=== PATIENT | male | born 1965 | race Hispanic/Latino ===

== ENCOUNTER 2019-03-24 19:23 | Emergency (ER) | payer SELFPAY | END 2019-03-24 19:57 | disposition home or self-care (01) | LOC: EDH 19:23 | DX: S91.331A Puncture wound without foreign body, right foot, initial encounter (principal); E11.9 Type 2 diabetes mellitus without complications; W45.0XXA Nail entering through skin, initial encounter; Y93.89 Activity, other specified; Y92.89 Other specified places as the place of occurrence of the external cause; Y99.8 Other external cause status | CPT/HCPCS: 73620 ==

== ENCOUNTER 2020-08-24 18:03 | Inpatient (IN) | payer OTHER, SELFPAY ==
[~2020-08-24] VITALS: Ht 177.8 cm; Wt 74.8 kg
[2020-08-24 19:01] LABS: BASOPHILS % (AUTO) 0.2 % (0.0-5.0); EOSINOPHILS % (AUTO) 2.3 % (0.0-8.0); HEMATOCRIT 34.4 % (42-54); LYMPHOCYTES % (AUTO) 7.5 % (21.0-51.0); MEAN CORPUSCULAR HEMOGLOBIN 31.3 pg (27.0-33.0); MEAN CORPUSCULAR HGB CONC 35.2 g/dL (32.0-36.0); MEAN CORPUSCULAR VOLUME 88.9 fL (79-99); MONOCYTES % (AUTO) 7.3 % (3.0-13.0); NEUTROPHILS % (AUTO) 82.3 % (40.0-77.0); PLATELET COUNT (AUTO) 187 K/uL (130-400); RED BLOOD CELL COUNT(AUTO) 3.87 MIL/uL (4.50-6.20); RED CELL DISTRIBUTION WIDTH 11.9 % (11.0-15.5); WHITE BLOOD COUNT (AUTO) 10.2 K/uL (4.8-10.8)
[2020-08-24 19:13] LABS: CREATININE 1.6 mg/dL (0.5-1.5); POTASSIUM 4.5 mmol/L (3.5-5.1)
[2020-08-24 19:18] LABS: ALBUMIN 3.1 g/dL (3.5-5.0); BILIRUBIN,TOTAL 1.9 mg/dL (0.2-1.0); TOTAL PROTEIN, SERUM 7.6 g/dL (6.0-8.3)
[2020-08-24] MEDS ORDERED: 0.9% SODIUM CHLORIDE 50 ML IV BAG IV ONE (21:45)
[2020-08-24] MEDS ORDERED: PIP/TAZ ZOSYN 3.375G 3.375 GM VIAL IVPB ONE (21:45)
[2020-08-24] MEDS ORDERED: SODIUM CHLORIDE 0.9% 1000ML 1,000 ML IV ONE (21:45)
[2020-08-24] MEDS ORDERED: INSULIN HUMULIN R 100 UNIT/ML 3ML IV SCH (21:45)
[2020-08-24] MEDS ORDERED: 0.9% SODIUM CHLORIDE 250 ML IV BAG IVPB ONE (21:45)
[2020-08-24] MEDS ORDERED: VANCOMYCIN 1G VIAL IVPB ONE (21:45)
[2020-08-24 22:24] LABS: APPEARANCE,URINE Clear (CLEAR); BILIRUBIN,URINE Negative (NEGATIVE); COLOR,URINE Yellow (YELLOW); GLUCOSE, URINE (UA) >=1000 mg/dL (NEGATIVE); KETONES,URINE Negative (NEGATIVE); LEUKOCYTE ESTERASE ,URINE Negative (NEGATIVE); NITRATE,URINE Negative (NEGATIVE); OCCULT BLOOD,URINE Small (NEGATIVE); PROTEIN,URINE >=1000 mg/dL (NEGATIVE)
[2020-08-24 22:53] LABS: BACTERIA,URINE Few /HPF (None Seen); SQUAMOUS EPITHELIAL CELL,UR 0-2 /HPF (0-2); WBC,URINE 0-1 /HPF (0-1)
[2020-08-24] MEDS ORDERED: ZOSYN 3.375GM+NS 50ML 50 ML IV ONE (23:00)
[2020-08-24] MEDS ORDERED: SODIUM CHLORIDE 0.9% 50 ML IV ONE (23:00)
[2020-08-24] MEDS ORDERED: ACETAMINOPHEN 325 MG TAB PO PRN ×2 (23:45)
[2020-08-24] MEDS ORDERED: VANCOMYCIN PROTOCOL PER PHARMACY IV PRN (23:45)
[2020-08-24] MEDS ORDERED: MORPHINE 2 MG SYG (2MG/1ML) IV PRN (23:45)
[2020-08-24] MEDS ORDERED: SODIUM CHLORIDE 0.9% 1000ML 1,000 ML IV SCH (23:45)
[2020-08-24] MEDS ORDERED: ONDANSETRON HCL 4 MG/2 ML VIAL IV PRN (23:45)
[2020-08-25 00:30] VITALS: BP 175/79
[2020-08-25] MEDS ORDERED: VANCOMYCIN KIT 250 ML IV ONE (00:34)
[2020-08-25 01:37] LABS: INR 0.99 (0.85-1.15); PROTHROMBIN TIME 10.8 SEC (9.6-11.6)
[2020-08-25 01:38] LABS: PARTIAL THROMBOPLASTIN TIME 25.6 SEC (26.3-35.5)
[2020-08-25 02:41] VITALS: BP 153/67
[2020-08-25 02:43] LABS: CRP QUANTITATIVE 211.3 mg/L (0.00-9.0); POTASSIUM 4.8 mmol/L (3.5-5.1)
[2020-08-25 02:45] LABS: BILIRUBIN,TOTAL 1.8 mg/dL (0.2-1.0); CREATININE 1.7 mg/dL (0.5-1.5)
[2020-08-25 02:46] LABS: ALBUMIN 2.9 g/dL (3.5-5.0); TOTAL PROTEIN, SERUM 7.3 g/dL (6.0-8.3)
[2020-08-25 04:44] VITALS: BP 152/63
[2020-08-25] MEDS ORDERED: ZOSYN 3.375GM+NS 50ML 50 ML IV SCH (05:00)
[2020-08-25 06:07] VITALS: BP 148/61
[2020-08-25 06:27] LABS: BASOPHILS % (AUTO) 0.2 % (0.0-5.0); EOSINOPHILS % (AUTO) 0.2 % (0.0-8.0); HEMATOCRIT 30.2 % (42-54); LYMPHOCYTES % (AUTO) 9.2 % (21.0-51.0); MEAN CORPUSCULAR HEMOGLOBIN 31.4 pg (27.0-33.0); MEAN CORPUSCULAR HGB CONC 35.1 g/dL (32.0-36.0); MEAN CORPUSCULAR VOLUME 89.3 fL (79-99); MONOCYTES % (AUTO) 9.3 % (3.0-13.0); NEUTROPHILS % (AUTO) 80.4 % (40.0-77.0); PLATELET COUNT (AUTO) 156 K/uL (130-400); RED BLOOD CELL COUNT(AUTO) 3.38 MIL/uL (4.50-6.20); RED CELL DISTRIBUTION WIDTH 11.9 % (11.0-15.5); WHITE BLOOD COUNT (AUTO) 9.2 K/uL (4.8-10.8)
[2020-08-25] MEDS ORDERED: COMPOUND IV REFRIGERATED 1 EACH IVSOLN MISC PRN (06:30)
[2020-08-25 06:49] LABS: HEMOGLOBIN A1C 10.5 % (4.0-6.0)
[2020-08-25] MEDS ORDERED: INSULIN HUMULIN R 100 UNIT/ML 3ML SQ SCH (07:30)
[2020-08-25] MEDS ORDERED: FAMOTIDINE 20MG TAB 20 MG TAB PO SCH (09:00)
[2020-08-25] MEDS ORDERED: FAMOTIDINE/PF 20 MG/2 ML VIAL IV SCH (09:00)
[2020-08-25] MEDS ORDERED: VANCOMYCIN IV SCH (09:00)
[2020-08-25] MEDS ORDERED: SODIUM CHLORIDE 0.9% IV SCH (09:00)
== END 2020-08-25 10:10 | disposition left against medical advice (07) | DRG 299 ==
LOC: EDH 18:03 → EDHIP 18:04
PROVIDERS: ADMIT Internal Medicine; ATTEND Internal Medicine
DX: E11.52 Type 2 diabetes mellitus with diabetic peripheral angiopathy with gangrene (principal); A48.0 Gas gangrene; L03.116 Cellulitis of left lower limb; Z53.29 Procedure and treatment not carried out because of patient's decision for other reasons; E11.65 Type 2 diabetes mellitus with hyperglycemia; Z87.891 Personal history of nicotine dependence; Z91.19 Patient's noncompliance with other medical treatment and regimen; Z79.84 Long term (current) use of oral hypoglycemic drugs
CPT/HCPCS: 36415; 73630; 73700; 80053; 81001; 82010; 82948; 83036; 83605; 84145; 85025; 85610; 85651; 85730; 86140; 87040; 93005; G0378; J1815; J2543; J3370; J7050

== ENCOUNTER 2020-08-27 14:01 | Inpatient (IN) | payer OTHER ==
[2020-08-27] VITALS (14 sets, daily range): BP systolic 126–164; BP diastolic 58–88
[~2020-08-27] VITALS: Ht 177.8 cm; Wt 74.8 kg
[2020-08-27] MEDS ORDERED: VANCOMYCIN 1G VIAL IVPB ONE (14:45)
[2020-08-27] MEDS ORDERED: 0.9% NACL 50ML 50 ML IV.SOLN. IV ONE (14:45)
[2020-08-27] MEDS ORDERED: PIP/TAZ ZOSYN 3.375G 3.375 GM VIAL IVPB ONE (14:45)
[2020-08-27 14:52] LABS: BASOPHILS % (AUTO) 0.2 % (0.0-5.0); HEMATOCRIT 32.1 % (42-54); LYMPHOCYTES % (AUTO) 14.9 % (21.0-51.0); MEAN CORPUSCULAR HEMOGLOBIN 32.1 pg (27.0-33.0); MEAN CORPUSCULAR HGB CONC 34.6 g/dL (32.0-36.0); MEAN CORPUSCULAR VOLUME 92.8 fL (79-99); MONOCYTES % (AUTO) 6.9 % (3.0-13.0); NEUTROPHILS % (AUTO) 76.3 % (40.0-77.0); PLATELET COUNT (AUTO) 238 K/uL (130-400); RED BLOOD CELL COUNT(AUTO) 3.46 MIL/uL (4.50-6.20); WHITE BLOOD COUNT (AUTO) 10.4 K/uL (4.8-10.8)
[2020-08-27] MEDS ORDERED: 0.9%NACL 250ML IVPB ONE (15:00)
[2020-08-27] MEDS ORDERED: ZOSYN 3.375GM+NS 50ML 50 ML IV ONE (15:06)
[2020-08-27] MEDS ORDERED: 0.9% NACL 50ML 50 ML IV ONE (15:07)
[2020-08-27 15:19] LABS: CREATININE 1.5 mg/dL (0.5-1.5); POTASSIUM 4.7 mmol/L (3.5-5.1)
[2020-08-27 15:23] LABS: ALBUMIN 2.5 g/dL (3.5-5.0); BILIRUBIN,TOTAL 0.6 mg/dL (0.2-1.0); CRP QUANTITATIVE 140.7 mg/L (0.00-9.0)
[2020-08-27] MEDS ORDERED: INSULIN HUMULIN R 100 UNIT/ML 3ML IV STA (15:49)
[2020-08-27] MEDS ORDERED: NACL 0.9% 1000ML 1,000 ML IV ONE (16:00)
[2020-08-27] MEDS ORDERED: VANCOMYCIN KIT 250 ML IV ONE (16:15)
[2020-08-27] MEDS ORDERED: VANCOMYCIN IV ONE (19:00)
[2020-08-27] MEDS ORDERED: [UNRECOGNIZED DRUG - OTHER] IV ONE (19:00)
[2020-08-27] MEDS ORDERED: VANCOMYCIN PROTOCOL PER PHARMACY IV SCH (19:00)
[2020-08-27 19:24] LABS: HEMOGLOBIN A1C 10.4 % (4.0-6.0)
[2020-08-27] MEDS ORDERED: LIDOCAINE HCL 1% 20 ML VIAL ONE (20:26)
[2020-08-27] MEDS ORDERED: BUPIVACAINE/PF 0.5% 30ML VIAL ONE (20:26)
[2020-08-27] MEDS ORDERED: GENTAMICIN SULFATE 80 MG/2 ML VIAL ONE (20:27)
[2020-08-27] MEDS ORDERED: PIP/TAZ ZOSYN 3.375G 3.375 GM VIAL IVPB SCH (22:00)
[2020-08-27] MEDS: CEFEPIME HCL 2 GM VIAL IVP SCH (23:06)
[2020-08-28] VITALS (8 sets, daily range): BP systolic 137–167; BP diastolic 41–88
[2020-08-28] MEDS: METRONIDAZOLE 500MG/100ML BAG 100 ML IVPB SCH ×5 (00:03→22:15)
[2020-08-28 05:40] LABS: BASOPHILS % (AUTO) 0.2 % (0.0-5.0); EOSINOPHILS % (AUTO) 1.1 % (0.0-8.0); HEMATOCRIT 28.2 % (42-54); LYMPHOCYTES % (AUTO) 14.8 % (21.0-51.0); MEAN CORPUSCULAR HEMOGLOBIN 30.8 pg (27.0-33.0); MEAN CORPUSCULAR VOLUME 90.4 fL (79-99); MONOCYTES % (AUTO) 7.6 % (3.0-13.0); NEUTROPHILS % (AUTO) 75.7 % (40.0-77.0); PLATELET COUNT (AUTO) 240 K/uL (130-400); RED BLOOD CELL COUNT(AUTO) 3.12 MIL/uL (4.50-6.20); WHITE BLOOD COUNT (AUTO) 8.5 K/uL (4.8-10.8)
[2020-08-28 05:47] LABS: CREATININE 1.1 mg/dL (0.5-1.5); POTASSIUM 4.5 mmol/L (3.5-5.1)
[2020-08-28] MEDS: VANCOMYCIN 750MG VIAL IVPB SCH ×2 (05:56→17:25)
[2020-08-28] MEDS: 0.9%NACL 250ML 250 ML IV SCH ×2 (05:56→17:33)
[2020-08-28] MEDS: INSULIN HUMULIN R 100 UNIT/ML 3ML SQ SCH ×4 (07:01→21:00)
[2020-08-28] MEDS: CEFEPIME HCL 2 GM VIAL IVP SCH ×2 (09:09→20:08)
[2020-08-28] MEDS: INSULIN GLARGINE 100 UNITS/ML 10 ML VIAL SQ SCH (09:14)
[2020-08-28 11:04] LABS: AMPHET/METH SCREEN,URINE NEGATIVE (NEGATIVE); BARBITURATE SCREEN, URINE NEGATIVE (NEGATIVE); BENZODIAZEPINES SCREEN,URINE POSITIVE (NEGATIVE); CANNABINOID SCREEN,URINE NEGATIVE (NEGATIVE); COCAINE SCREEN,URINE NEGATIVE (NEGATIVE); OPIATE SCREEN,URINE NEGATIVE (NEGATIVE); PHENCYCLIDINE SCREEN,URINE NEGATIVE (NEGATIVE)
[2020-08-28] MEDS ORDERED: ACETAMINOPHEN 325 MG TAB PO PRN (19:45)
[2020-08-28] MEDS: ACETAMINOPHEN 325 MG TAB PO PRN (20:09)
[2020-08-29 00:10] VITALS: BP 123/59
[2020-08-29 04:15] VITALS: BP 146/70
[2020-08-29 05:07] LABS: BASOPHILS % (AUTO) 0.2 % (0.0-5.0); EOSINOPHILS % (AUTO) 0.9 % (0.0-8.0); HEMATOCRIT 27.8 % (42-54); LYMPHOCYTES % (AUTO) 14.4 % (21.0-51.0); MEAN CORPUSCULAR HEMOGLOBIN 31.1 pg (27.0-33.0); MEAN CORPUSCULAR HGB CONC 34.2 g/dL (32.0-36.0); MEAN CORPUSCULAR VOLUME 91.1 fL (79-99); MONOCYTES % (AUTO) 8.8 % (3.0-13.0); NEUTROPHILS % (AUTO) 75.1 % (40.0-77.0); PLATELET COUNT (AUTO) 265 K/uL (130-400); RED BLOOD CELL COUNT(AUTO) 3.05 MIL/uL (4.50-6.20); RED CELL DISTRIBUTION WIDTH 11.9 % (11.0-15.5); WHITE BLOOD COUNT (AUTO) 9.6 K/uL (4.8-10.8)
[2020-08-29 05:18] LABS: POTASSIUM 4.2 mmol/L (3.5-5.1)
[2020-08-29] MEDS: METRONIDAZOLE 500MG/100ML BAG 100 ML IVPB SCH ×3 (05:25→22:08)
[2020-08-29] MEDS: INSULIN HUMULIN R 100 UNIT/ML 3ML SQ SCH ×4 (07:18→21:00)
[2020-08-29 08:00] VITALS: BP 134/69
[2020-08-29] MEDS: VANCOMYCIN 750MG VIAL IVPB SCH ×2 (08:23→18:27)
[2020-08-29] MEDS: CEFEPIME HCL 2 GM VIAL IVP SCH ×2 (08:23→20:19)
[2020-08-29] MEDS: 0.9%NACL 250ML 250 ML IV SCH ×2 (08:23→18:28)
[2020-08-29] MEDS: INSULIN GLARGINE 100 UNITS/ML 10 ML VIAL SQ SCH (08:28)
[2020-08-29] MEDS ORDERED: PANTOPRAZOLE 40 MG TAB DR PO SCH (09:00)
[2020-08-29] MEDS ORDERED: POLYETHYLENE GLYCOL 3350 17 GM POWD.PACK PO SCH (10:59)
[2020-08-29 12:00] VITALS: BP 164/77
[2020-08-29] MEDS ORDERED: VANCOMYCIN 750MG VIAL IVPB SCH (12:00)
[2020-08-29 16:00] VITALS: BP 134/70
[2020-08-29 20:04] VITALS: BP 166/78
[2020-08-29] MEDS: ACETAMINOPHEN 325 MG TAB PO PRN (23:37)
[2020-08-30 00:04] VITALS: BP 153/75
[2020-08-30 04:04] VITALS: BP 172/79
[2020-08-30] MEDS: METRONIDAZOLE 500MG/100ML BAG 100 ML IVPB SCH ×3 (04:46→22:12)
[2020-08-30] MEDS: INSULIN HUMULIN R 100 UNIT/ML 3ML SQ SCH ×4 (05:43→20:51)
[2020-08-30 05:58] LABS: BASOPHILS % (AUTO) 0.3 % (0.0-5.0); EOSINOPHILS % (AUTO) 1.7 % (0.0-8.0); HEMATOCRIT 28.9 % (42-54); LYMPHOCYTES % (AUTO) 13.8 % (21.0-51.0); MEAN CORPUSCULAR HEMOGLOBIN 31.3 pg (27.0-33.0); MEAN CORPUSCULAR HGB CONC 34.3 g/dL (32.0-36.0); MEAN CORPUSCULAR VOLUME 91.5 fL (79-99); NEUTROPHILS % (AUTO) 76.4 % (40.0-77.0); PLATELET COUNT (AUTO) 299 K/uL (130-400); RED BLOOD CELL COUNT(AUTO) 3.16 MIL/uL (4.50-6.20); RED CELL DISTRIBUTION WIDTH 11.9 % (11.0-15.5); WHITE BLOOD COUNT (AUTO) 9.2 K/uL (4.8-10.8)
[2020-08-30] MEDS: 0.9%NACL 250ML 250 ML IV SCH (06:04)
[2020-08-30] MEDS: VANCOMYCIN 750MG VIAL IVPB SCH (06:04)
[2020-08-30 06:07] LABS: POTASSIUM 4.1 mmol/L (3.5-5.1)
[2020-08-30 08:04] VITALS: BP 157/79
[2020-08-30] MEDS: PANTOPRAZOLE 40 MG TAB DR PO SCH (08:42)
[2020-08-30] MEDS: POLYETHYLENE GLYCOL 3350 17 GM POWD.PACK PO SCH (08:43)
[2020-08-30] MEDS: CEFEPIME HCL 2 GM VIAL IVP SCH ×2 (08:43→20:35)
[2020-08-30] MEDS: INSULIN GLARGINE 100 UNITS/ML 10 ML VIAL SQ SCH (08:44)
[2020-08-30] MEDS ORDERED: HONEY 1 APPL/ML TUBE TP SCH (09:00)
[2020-08-30 12:00] VITALS: BP 157/74
[2020-08-30] MEDS: LISINOPRIL 10 MG TABLET PO SCH (13:27)
[2020-08-30 15:39] VITALS: BP 172/74
[2020-08-30] MEDS ORDERED: LABETALOL 20MG VIAL IV PRN (15:45)
[2020-08-30 20:04] VITALS: BP 153/68
[2020-08-31 00:04] VITALS: BP 159/70
[2020-08-31 04:04] VITALS: BP 159/74
[2020-08-31] MEDS: METRONIDAZOLE 500MG/100ML BAG 100 ML IVPB SCH ×3 (05:39→21:07)
[2020-08-31 05:58] LABS: BASOPHILS % (AUTO) 0.2 % (0.0-5.0); EOSINOPHILS % (AUTO) 1.4 % (0.0-8.0); HEMATOCRIT 25.7 % (42-54); LYMPHOCYTES % (AUTO) 12.7 % (21.0-51.0); MEAN CORPUSCULAR HEMOGLOBIN 30.9 pg (27.0-33.0); MEAN CORPUSCULAR HGB CONC 34.6 g/dL (32.0-36.0); MEAN CORPUSCULAR VOLUME 89.2 fL (79-99); MONOCYTES % (AUTO) 7.3 % (3.0-13.0); NEUTROPHILS % (AUTO) 77.9 % (40.0-77.0); PLATELET COUNT (AUTO) 309 K/uL (130-400); RED BLOOD CELL COUNT(AUTO) 2.88 MIL/uL (4.50-6.20); RED CELL DISTRIBUTION WIDTH 11.8 % (11.0-15.5); WHITE BLOOD COUNT (AUTO) 8.7 K/uL (4.8-10.8)
[2020-08-31] MEDS: INSULIN HUMULIN R 100 UNIT/ML 3ML SQ SCH ×6 (06:25→21:00)
[2020-08-31 06:28] LABS: ALBUMIN 1.8 g/dL (3.5-5.0); BILIRUBIN,TOTAL 0.4 mg/dL (0.2-1.0); CREATININE 0.9 mg/dL (0.5-1.5); POTASSIUM 3.9 mmol/L (3.5-5.1); TOTAL PROTEIN, SERUM 5.4 g/dL (6.0-8.3)
[2020-08-31 08:00] VITALS: BP 158/71
[2020-08-31] MEDS: LISINOPRIL 10 MG TABLET PO SCH (08:39)
[2020-08-31] MEDS: PANTOPRAZOLE 40 MG TAB DR PO SCH (08:39)
[2020-08-31] MEDS: CEFEPIME HCL 2 GM VIAL IVP SCH ×2 (08:41→21:07)
[2020-08-31] MEDS: POLYETHYLENE GLYCOL 3350 17 GM POWD.PACK PO SCH (09:00)
[2020-08-31] MEDS: INSULIN GLARGINE 100 UNITS/ML 10 ML VIAL SQ SCH (09:06)
[2020-08-31] MEDS: HONEY 1 APPL/ML TUBE TP SCH (09:15)
[2020-08-31 12:00] VITALS: BP 151/77
[2020-08-31 16:00] VITALS: BP 162/87
[2020-08-31 20:00] VITALS: BP 159/77
[2020-09-01] VITALS (7 sets, daily range): BP systolic 150–170; BP diastolic 72–81
[2020-09-01 05:01] LABS: BASOPHILS % (AUTO) 0.2 % (0.0-5.0); EOSINOPHILS % (AUTO) 1.7 % (0.0-8.0); HEMATOCRIT 26.3 % (42-54); LYMPHOCYTES % (AUTO) 16.8 % (21.0-51.0); MEAN CORPUSCULAR HEMOGLOBIN 30.4 pg (27.0-33.0); MEAN CORPUSCULAR HGB CONC 33.8 g/dL (32.0-36.0); MEAN CORPUSCULAR VOLUME 89.8 fL (79-99); MONOCYTES % (AUTO) 8.7 % (3.0-13.0); PLATELET COUNT (AUTO) 352 K/uL (130-400); RED BLOOD CELL COUNT(AUTO) 2.93 MIL/uL (4.50-6.20); RED CELL DISTRIBUTION WIDTH 11.8 % (11.0-15.5); WHITE BLOOD COUNT (AUTO) 8.1 K/uL (4.8-10.8)
[2020-09-01 05:22] LABS: ALBUMIN 1.8 g/dL (3.5-5.0); BILIRUBIN,TOTAL 0.3 mg/dL (0.2-1.0); CREATININE 0.9 mg/dL (0.5-1.5); POTASSIUM 3.9 mmol/L (3.5-5.1); TOTAL PROTEIN, SERUM 5.4 g/dL (6.0-8.3)
[2020-09-01] MEDS: METRONIDAZOLE 500MG/100ML BAG 100 ML IVPB SCH (05:44)
[2020-09-01] MEDS: INSULIN HUMULIN R 100 UNIT/ML 3ML SQ SCH ×7 (07:30→20:23)
[2020-09-01] MEDS: PANTOPRAZOLE 40 MG TAB DR PO SCH (07:46)
[2020-09-01] MEDS: LISINOPRIL 10 MG TABLET PO SCH (09:42)
[2020-09-01] MEDS: POLYETHYLENE GLYCOL 3350 17 GM POWD.PACK PO SCH (09:42)
[2020-09-01] MEDS: CEFEPIME HCL 2 GM VIAL IVP SCH (09:42)
[2020-09-01] MEDS: INSULIN GLARGINE 100 UNITS/ML 10 ML VIAL SQ SCH (09:44)
[2020-09-01] MEDS: HONEY 1 APPL/ML TUBE TP SCH (09:46)
[2020-09-01] MEDS: LEVOFLOXACIN 750 MG TABLET PO SCH (15:47)
[2020-09-01] MEDS: AMOXICILLIN 500 MG CAPSULE PO SCH ×2 (15:47→20:23)
[2020-09-02 04:01] VITALS: BP 166/80
[2020-09-02 05:03] LABS: BASOPHILS % (AUTO) 0.3 % (0.0-5.0); HEMATOCRIT 26.1 % (42-54); LYMPHOCYTES % (AUTO) 17.3 % (21.0-51.0); MEAN CORPUSCULAR HEMOGLOBIN 30.8 pg (27.0-33.0); MEAN CORPUSCULAR HGB CONC 34.1 g/dL (32.0-36.0); MEAN CORPUSCULAR VOLUME 90.3 fL (79-99); NEUTROPHILS % (AUTO) 71.5 % (40.0-77.0); PLATELET COUNT (AUTO) 364 K/uL (130-400); RED BLOOD CELL COUNT(AUTO) 2.89 MIL/uL (4.50-6.20); RED CELL DISTRIBUTION WIDTH 11.7 % (11.0-15.5); WHITE BLOOD COUNT (AUTO) 8.9 K/uL (4.8-10.8)
[2020-09-02] MEDS: AMOXICILLIN 500 MG CAPSULE PO SCH ×2 (05:19→14:50)
[2020-09-02 05:51] LABS: ALBUMIN 1.9 g/dL (3.5-5.0); BILIRUBIN,TOTAL 0.3 mg/dL (0.2-1.0); CREATININE 0.9 mg/dL (0.5-1.5); POTASSIUM 3.9 mmol/L (3.5-5.1); TOTAL PROTEIN, SERUM 5.5 g/dL (6.0-8.3)
[2020-09-02] MEDS: INSULIN HUMULIN R 100 UNIT/ML 3ML SQ SCH ×6 (06:39→17:40)
[2020-09-02] MEDS: PANTOPRAZOLE 40 MG TAB DR PO SCH (07:01)
[2020-09-02 08:00] VITALS: BP 165/76
[2020-09-02] MEDS: POLYETHYLENE GLYCOL 3350 17 GM POWD.PACK PO SCH (09:00)
[2020-09-02] MEDS: LISINOPRIL 10 MG TABLET PO SCH (09:50)
[2020-09-02] MEDS: INSULIN GLARGINE 100 UNITS/ML 10 ML VIAL SQ SCH (09:58)
[2020-09-02] MEDS: HONEY 1 APPL/ML TUBE TP SCH (09:59)
[2020-09-02] MEDS ORDERED: HYDROCHLOROTHIAZIDE 25 MG TABLET PO SCH (10:30)
[2020-09-02] MEDS ORDERED: LISINOPRIL 10 MG TABLET PO SCH (10:30)
[2020-09-02 11:55] VITALS: BP 155/75
[2020-09-02] MEDS ORDERED: SYRI-1628 MC (14:37)
[2020-09-02] MEDS ORDERED: INSU100V3 SQ (14:37)
[2020-09-02] MEDS ORDERED: PANT40TA PO (14:37)
[2020-09-02] MEDS ORDERED: INSLAN SQ (14:37)
[2020-09-02] MEDS ORDERED: ATOR10 PO (14:39)
[2020-09-02] MEDS ORDERED: LISI1TAB29 PO (14:41)
[2020-09-02] MEDS: LEVOFLOXACIN 750 MG TABLET PO SCH (14:50)
[2020-09-02 16:00] VITALS: BP 147/72
[2020-09-02] MEDS ORDERED: LEVO500T89 PO (19:16)
[2020-09-02] MEDS ORDERED: AMOX500C2 PO (19:16)
[2020-09-03] MEDS ORDERED: LISINOPRIL 10 MG TABLET PO SCH (09:00)
== END 2020-09-02 21:00 | disposition home or self-care (01) | DRG 622 ==
LOC: EDH 14:01 → EDHIP 14:02 → 3CH 21:56
PROVIDERS: ADMIT Internal Medicine; ATTEND Internal Medicine
PROC: 0KBW0ZZ Excision of Left Foot Muscle, Open Approach (ICD-10-PCS; principal; 2020-08-27 20:45)
DX: E11.69 Type 2 diabetes mellitus with other specified complication (principal); A48.0 Gas gangrene; A41.9 Sepsis, unspecified organism; E11.52 Type 2 diabetes mellitus with diabetic peripheral angiopathy with gangrene; L03.116 Cellulitis of left lower limb; M86.8X7 Other osteomyelitis, ankle and foot; L02.612 Cutaneous abscess of left foot; N17.9 Acute kidney failure, unspecified; E11.621 Type 2 diabetes mellitus with foot ulcer; E11.65 Type 2 diabetes mellitus with hyperglycemia; E88.09 Other disorders of plasma-protein metabolism, not elsewhere classified; L97.529 Non-pressure chronic ulcer of other part of left foot with unspecified severity; I12.9 Hypertensive chronic kidney disease with stage 1 through stage 4 chronic kidney disease, or unspecified chronic kidney disease; N18.30 Chronic kidney disease, stage 3 unspecified; E11.22 Type 2 diabetes mellitus with diabetic chronic kidney disease; B96.1 Klebsiella pneumoniae [K. pneumoniae] as the cause of diseases classified elsewhere; B95.2 Enterococcus as the cause of diseases classified elsewhere; Z91.19 Patient's noncompliance with other medical treatment and regimen
CPT/HCPCS: 36415; 73630; 73718; 80048; 80053; 80202; 80305; 82948; 83036; 83605; 84145; 84484; 85025; 86140; 87040; 87070; 87076; 87077; 87186; 87205; 93005; 97039; G0378; J0692; J1580; J1815; J2543; J3370; J3490; J7030; J7050

== ENCOUNTER 2020-09-09 14:21 | Inpatient (IN) | payer OTHER ==
[~2020-09-09] VITALS: Ht 177.8 cm; Wt 77.6 kg
[~2020-09-09 14:21] MED LIST: AMOX500C2 PO; ATOR10 PO; INSLAN SQ; INSU100V3 SQ; LEVO500T89 PO; LISI1TAB29 PO; PANT40TA PO; SYRI-1628 MC
[2020-09-09 14:26] VITALS: BP 114/68
[2020-09-09] MEDS ORDERED: 0.9%NACL 50ML IV ONE (16:15)
[2020-09-09] MEDS ORDERED: PIP/TAZ ZOSYN 3.375G 3.375 GM VIAL IVPB ONE (16:15)
[2020-09-09 16:16] LABS: BASOPHILS % (AUTO) 0.3 % (0.0-5.0); EOSINOPHILS % (AUTO) 0.5 % (0.0-8.0); HEMATOCRIT 30.6 % (42-54); LYMPHOCYTES % (AUTO) 14.6 % (21.0-51.0); MEAN CORPUSCULAR HEMOGLOBIN 31.1 pg (27.0-33.0); MEAN CORPUSCULAR HGB CONC 33.7 g/dL (32.0-36.0); MEAN CORPUSCULAR VOLUME 92.4 fL (79-99); MONOCYTES % (AUTO) 6.6 % (3.0-13.0); NEUTROPHILS % (AUTO) 77.6 % (40.0-77.0); PLATELET COUNT (AUTO) 309 K/uL (130-400); RED BLOOD CELL COUNT(AUTO) 3.31 MIL/uL (4.50-6.20); RED CELL DISTRIBUTION WIDTH 12.5 % (11.0-15.5); WHITE BLOOD COUNT (AUTO) 7.9 K/uL (4.8-10.8)
[2020-09-09 16:26] LABS: CREATININE 1.6 mg/dL (0.5-1.5); POTASSIUM 4.8 mmol/L (3.5-5.1)
[2020-09-09 16:30] LABS: ALBUMIN 2.6 g/dL (3.5-5.0); BILIRUBIN,TOTAL 0.4 mg/dL (0.2-1.0); CRP QUANTITATIVE 19.4 mg/L (0.00-9.0); TOTAL PROTEIN, SERUM 6.7 g/dL (6.0-8.3)
[2020-09-09] MEDS ORDERED: VANCOMYCIN PROTOCOL PER PHARMACY IV SCH (16:30)
[2020-09-09] MEDS ORDERED: ZOSYN 3.375GM+NS 50ML 50 ML IV ONE (16:30)
[2020-09-09] MEDS ORDERED: MORPHINE 2 MG SYG IV PRN (16:30)
[2020-09-09] MEDS ORDERED: LACTULOSE 20 GM/30 ML UDCUP PO PRN (16:30)
[2020-09-09] MEDS ORDERED: ONDANSETRON 4MG INJ IV PRN (16:30)
[2020-09-09] MEDS ORDERED: ACETAMINOPHEN 325 MG TAB PO PRN ×2 (16:30)
[2020-09-09 16:31] VITALS: BP 157/84
[2020-09-09 17:24] LABS: ERYTHROCYTE SEDIMENTATION RATE 89 MM/HR (0-20)
[2020-09-09] MEDS: 0.9%NACL 1000ML 1,000 ML IV SCH (17:40)
[2020-09-09] MEDS: INSULIN HUMULIN R 100 UNIT/ML 3ML SQ SCH ×3 (17:41→22:24)
[2020-09-09] MEDS: VANCOMYCIN 1G 1.5 GM in 0.9% NACL 250ML 250 ML IV SCH (17:41)
[2020-09-09 17:52] VITALS: BP 156/79
[2020-09-09 20:02] VITALS: BP 153/71
[2020-09-09] MEDS ORDERED: 0.9%NACL 100ML 100 ML ONE (20:08)
[2020-09-09] MEDS ORDERED: ZOSYN 3.375GM+NS 50ML 50 ML IV SCH (21:00)
[2020-09-09] MEDS: METRONIDAZOLE 500MG/100ML BAG 100 ML IVPB SCH (22:00)
[2020-09-09] MEDS: FAMOTIDINE 20MG VIAL IV SCH (22:23)
[2020-09-09] MEDS: CEFEPIME HCL 2 GM VIAL IVP SCH (22:23)
[2020-09-09] MEDS: ATORVASTATIN 10 MG TABLET PO SCH (22:23)
[2020-09-10] VITALS (7 sets, daily range): BP systolic 135–167; BP diastolic 66–87
[2020-09-10] MEDS: 0.9%NACL 1000ML 1,000 ML IV SCH ×2 (03:31→12:41)
[2020-09-10] MEDS ORDERED: NPH,100V11 SQ (05:45)
[2020-09-10] MEDS: METRONIDAZOLE 500MG/100ML BAG 100 ML IVPB SCH ×3 (06:30→22:11)
[2020-09-10] MEDS: INSULIN HUMULIN R 100 UNIT/ML 3ML SQ SCH ×7 (07:24→20:55)
[2020-09-10] MEDS: LISINOPRIL 20 MG TABLET PO SCH (09:18)
[2020-09-10] MEDS: FAMOTIDINE 20MG VIAL IV SCH ×2 (09:18→20:54)
[2020-09-10] MEDS: INSULIN GLARGINE 100 UNITS/ML 10 ML VIAL SQ SCH (09:18)
[2020-09-10] MEDS: CEFEPIME HCL 2 GM VIAL IVP SCH ×2 (09:18→20:54)
[2020-09-10] MEDS: HYDROCHLOROTHIAZIDE 25 MG TABLET PO SCH (09:18)
[2020-09-10] MEDS: ENOXAPARIN SODIUM 40 MG/0.4 ML SYRINGE SQ SCH (09:19)
[2020-09-10 09:36] LABS: BASOPHILS % (AUTO) 0.5 % (0.0-5.0); EOSINOPHILS % (AUTO) 0.8 % (0.0-8.0); HEMATOCRIT 31.6 % (42-54); LYMPHOCYTES % (AUTO) 17.4 % (21.0-51.0); MEAN CORPUSCULAR HEMOGLOBIN 29.9 pg (27.0-33.0); MEAN CORPUSCULAR HGB CONC 32.6 g/dL (32.0-36.0); MEAN CORPUSCULAR VOLUME 91.6 fL (79-99); MONOCYTES % (AUTO) 6.3 % (3.0-13.0); NEUTROPHILS % (AUTO) 74.7 % (40.0-77.0); PLATELET COUNT (AUTO) 309 K/uL (130-400); RED BLOOD CELL COUNT(AUTO) 3.45 MIL/uL (4.50-6.20); RED CELL DISTRIBUTION WIDTH 12.4 % (11.0-15.5); WHITE BLOOD COUNT (AUTO) 7.3 K/uL (4.8-10.8)
[2020-09-10 09:47] LABS: CREATININE 1.1 mg/dL (0.5-1.5)
[2020-09-10] MEDS ORDERED: ASPIRIN 81 MG EC TAB PO ONE (16:15)
[2020-09-10] MEDS: VANCOMYCIN 1G 1.5 GM in 0.9% NACL 250ML 250 ML IV SCH (18:22)
[2020-09-10] MEDS: ATORVASTATIN 10 MG TABLET PO SCH (20:54)
[2020-09-11] VITALS (13 sets, daily range): BP systolic 109–177; BP diastolic 53–92
[2020-09-11] MEDS: 0.9%NACL 1000ML 1,000 ML IV SCH ×4 (05:15→20:59)
[2020-09-11] MEDS: METRONIDAZOLE 500MG/100ML BAG 100 ML IVPB SCH ×3 (05:15→22:53)
[2020-09-11] MEDS: INSULIN HUMULIN R 100 UNIT/ML 3ML SQ SCH ×7 (05:59→21:00)
[2020-09-11 06:21] LABS: BASOPHILS % (AUTO) 0.6 % (0.0-5.0); HEMATOCRIT 30.6 % (42-54); LYMPHOCYTES % (AUTO) 15.5 % (21.0-51.0); MEAN CORPUSCULAR HEMOGLOBIN 30.7 pg (27.0-33.0); MEAN CORPUSCULAR HGB CONC 33.3 g/dL (32.0-36.0); MEAN CORPUSCULAR VOLUME 92.2 fL (79-99); MONOCYTES % (AUTO) 8.5 % (3.0-13.0); NEUTROPHILS % (AUTO) 74.1 % (40.0-77.0); PLATELET COUNT (AUTO) 260 K/uL (130-400); RED BLOOD CELL COUNT(AUTO) 3.32 MIL/uL (4.50-6.20); RED CELL DISTRIBUTION WIDTH 12.2 % (11.0-15.5); WHITE BLOOD COUNT (AUTO) 7.1 K/uL (4.8-10.8)
[2020-09-11 06:35] LABS: CREATININE 1.1 mg/dL (0.5-1.5)
[2020-09-11 06:44] LABS: PROTHROMBIN TIME 10.9 SEC (9.6-11.6)
[2020-09-11 06:45] LABS: PARTIAL THROMBOPLASTIN TIME 25.3 SEC (26.3-35.5)
[2020-09-11] MEDS: 0.9% NACL 250ML 250 ML IV SCH (06:51)
[2020-09-11] MEDS: VANCOMYCIN KIT 1 GM/250 ML IV.KIT IV SCH ×2 (06:51→17:51)
[2020-09-11] MEDS ORDERED: FENTANYL CITRATE PF 50 MCG/1 ML 2ML VIAL ONE (08:25)
[2020-09-11] MEDS ORDERED: MIDAZOLAM HCL 1 MG/ML 2ML VIAL ONE (08:25)
[2020-09-11] MEDS ORDERED: HEPARIN 10,000 UNIT/10ML (1,000 UNIT/ML) VIAL ONE (08:25)
[2020-09-11] MEDS ORDERED: IODIXANOL 320 MG/ML 100 ML VIAL ONE (08:25)
[2020-09-11] MEDS ORDERED: NITROGLYCERIN 2 MG VIAL IV ONE (08:25)
[2020-09-11] MEDS ORDERED: LIDOCAINE HCL 400MG/20ML VIAL ONE (08:26)
[2020-09-11] MEDS: INSULIN GLARGINE 100 UNITS/ML 10 ML VIAL SQ SCH (09:00)
[2020-09-11] MEDS: HYDROCHLOROTHIAZIDE 25 MG TABLET PO SCH ×2 (11:31→14:46)
[2020-09-11] MEDS: LISINOPRIL 20 MG TABLET PO SCH ×2 (11:31→14:47)
[2020-09-11] MEDS ORDERED: HYDRALAZINE 20MG/ML VIAL IV PRN (11:45)
[2020-09-11] MEDS ORDERED: AMLODIPINE 5 MG TAB PO SCH (11:45)
[2020-09-11] MEDS: ASPIRIN 81 MG EC TAB PO SCH (14:46)
[2020-09-11] MEDS: FAMOTIDINE 20MG VIAL IV SCH ×2 (14:46→20:56)
[2020-09-11] MEDS: CEFEPIME HCL 2 GM VIAL IVP SCH ×2 (14:46→20:56)
[2020-09-11] MEDS: ENOXAPARIN SODIUM 40 MG/0.4 ML SYRINGE SQ SCH (14:48)
[2020-09-11] MEDS: ATORVASTATIN 10 MG TABLET PO SCH (20:56)
[2020-09-12] VITALS (20 sets, daily range): BP systolic 96–173; BP diastolic 53–90
[2020-09-12] MEDS: 0.9%NACL 1000ML 1,000 ML IV SCH ×4 (04:30→22:18)
[2020-09-12 04:43] LABS: HEMATOCRIT 27.1 % (42-54); MEAN CORPUSCULAR HEMOGLOBIN 30.8 pg (27.0-33.0); MEAN CORPUSCULAR HGB CONC 34.3 g/dL (32.0-36.0); MEAN CORPUSCULAR VOLUME 89.7 fL (79-99); RED BLOOD CELL COUNT(AUTO) 3.02 MIL/uL (4.50-6.20); RED CELL DISTRIBUTION WIDTH 12.2 % (11.0-15.5); WHITE BLOOD COUNT (AUTO) 5.7 K/uL (4.8-10.8)
[2020-09-12 05:00] LABS: CREATININE 0.9 mg/dL (0.5-1.5); POTASSIUM 3.9 mmol/L (3.5-5.1)
[2020-09-12] MEDS: INSULIN HUMULIN R 100 UNIT/ML 3ML SQ SCH ×7 (05:41→21:00)
[2020-09-12] MEDS: METRONIDAZOLE 500MG/100ML BAG 100 ML IVPB SCH ×3 (05:44→22:18)
[2020-09-12] MEDS: VANCOMYCIN KIT 1 GM/250 ML IV.KIT IV SCH ×2 (07:36→17:37)
[2020-09-12] MEDS: 0.9% NACL 250ML 250 ML IV SCH (07:36)
[2020-09-12] MEDS: ENOXAPARIN SODIUM 40 MG/0.4 ML SYRINGE SQ SCH (09:00)
[2020-09-12] MEDS: INSULIN GLARGINE 100 UNITS/ML 10 ML VIAL SQ SCH (09:00)
[2020-09-12] MEDS: AMLODIPINE 5 MG TAB PO SCH (09:06)
[2020-09-12] MEDS: HYDROCHLOROTHIAZIDE 25 MG TABLET PO SCH (09:06)
[2020-09-12] MEDS: ASPIRIN 81 MG EC TAB PO SCH (09:06)
[2020-09-12] MEDS: CEFEPIME HCL 2 GM VIAL IVP SCH ×2 (09:06→21:03)
[2020-09-12] MEDS: LISINOPRIL 20 MG TABLET PO SCH (09:06)
[2020-09-12] MEDS: FAMOTIDINE 20MG VIAL IV SCH ×2 (09:08→21:03)
[2020-09-12] MEDS ORDERED: LIDOCAINE HCL 1% 20 ML VIAL ONE (17:59)
[2020-09-12] MEDS ORDERED: BUPIVACAINE/PF 0.5% 30ML VIAL ONE (17:59)
[2020-09-12] MEDS ORDERED: FENTANYL CITRATE PF 50 MCG/1 ML 2ML VIAL ONE (18:03)
[2020-09-12] MEDS ORDERED: MIDAZOLAM HCL 1 MG/ML 2ML VIAL ONE ×2 (18:03→19:34)
[2020-09-12] MEDS: ATORVASTATIN 10 MG TABLET PO SCH (21:03)
[2020-09-12] MEDS ORDERED: HYDROMORPHONE 0.5 MG SYG (0.5MG/0.5ML) IVP PRN (22:30)
[2020-09-13] VITALS (7 sets, daily range): BP systolic 98–167; BP diastolic 50–86
[2020-09-13] MEDS: 0.9% NACL 250ML 250 ML IV SCH ×2 (05:11→17:55)
[2020-09-13] MEDS: VANCOMYCIN KIT 1 GM/250 ML IV.KIT IV SCH ×2 (05:11→17:54)
[2020-09-13 06:06] LABS: BASOPHILS % (AUTO) 0.3 % (0.0-5.0); EOSINOPHILS % (AUTO) 1.4 % (0.0-8.0); LYMPHOCYTES % (AUTO) 14.1 % (21.0-51.0); MEAN CORPUSCULAR HEMOGLOBIN 30.5 pg (27.0-33.0); MEAN CORPUSCULAR HGB CONC 33.8 g/dL (32.0-36.0); MEAN CORPUSCULAR VOLUME 90.2 fL (79-99); MONOCYTES % (AUTO) 7.7 % (3.0-13.0); NEUTROPHILS % (AUTO) 76.2 % (40.0-77.0); PLATELET COUNT (AUTO) 194 K/uL (130-400); RED BLOOD CELL COUNT(AUTO) 2.66 MIL/uL (4.50-6.20); RED CELL DISTRIBUTION WIDTH 12.4 % (11.0-15.5); WHITE BLOOD COUNT (AUTO) 7.2 K/uL (4.8-10.8)
[2020-09-13 06:14] LABS: POTASSIUM 4.2 mmol/L (3.5-5.1)
[2020-09-13] MEDS: METRONIDAZOLE 500MG/100ML BAG 100 ML IVPB SCH ×3 (06:20→22:03)
[2020-09-13] MEDS: INSULIN HUMULIN R 100 UNIT/ML 3ML SQ SCH ×7 (06:26→21:00)
[2020-09-13] MEDS: CEFEPIME HCL 2 GM VIAL IVP SCH ×2 (08:25→22:06)
[2020-09-13] MEDS: HYDROCHLOROTHIAZIDE 25 MG TABLET PO SCH (08:25)
[2020-09-13] MEDS: FAMOTIDINE 20MG VIAL IV SCH ×2 (08:25→22:04)
[2020-09-13] MEDS: ASPIRIN 81 MG EC TAB PO SCH (08:25)
[2020-09-13] MEDS: LISINOPRIL 20 MG TABLET PO SCH (08:25)
[2020-09-13] MEDS: ENOXAPARIN SODIUM 40 MG/0.4 ML SYRINGE SQ SCH (08:26)
[2020-09-13] MEDS: AMLODIPINE 5 MG TAB PO SCH (08:26)
[2020-09-13] MEDS: INSULIN GLARGINE 100 UNITS/ML 10 ML VIAL SQ SCH (08:27)
[2020-09-13] MEDS ORDERED: NEOMY SULF/BACITRAC ZN/POLY OINT 30GM TUBE TP SCH (10:00)
[2020-09-13] MEDS: 0.9%NACL 1000ML 1,000 ML IV SCH ×2 (10:30→20:30)
[2020-09-13] MEDS: FLUCONAZOLE 100 MG TAB PO SCH (13:51)
[2020-09-13] MEDS: ATORVASTATIN 10 MG TABLET PO SCH (22:04)
[2020-09-14] VITALS: BP 131/67
[2020-09-14 04:00] VITALS: BP 127/59
[2020-09-14] MEDS: METRONIDAZOLE 500MG/100ML BAG 100 ML IVPB SCH ×3 (05:26→20:31)
[2020-09-14] MEDS: INSULIN HUMULIN R 100 UNIT/ML 3ML SQ SCH ×7 (06:13→20:32)
[2020-09-14] MEDS: 0.9% NACL 250ML 250 ML IV SCH ×2 (06:40→17:35)
[2020-09-14] MEDS: VANCOMYCIN KIT 1 GM/250 ML IV.KIT IV SCH ×2 (06:40→17:35)
[2020-09-14 08:00] VITALS: BP 144/78
[2020-09-14] MEDS: 0.9%NACL 1000ML 1,000 ML IV SCH ×2 (08:18→16:30)
[2020-09-14] MEDS: FAMOTIDINE 20MG VIAL IV SCH ×2 (10:25→20:31)
[2020-09-14] MEDS: AMLODIPINE 5 MG TAB PO SCH (10:25)
[2020-09-14] MEDS: CEFEPIME HCL 2 GM VIAL IVP SCH ×2 (10:25→20:31)
[2020-09-14] MEDS: LISINOPRIL 20 MG TABLET PO SCH (10:25)
[2020-09-14] MEDS: ASPIRIN 81 MG EC TAB PO SCH (10:25)
[2020-09-14] MEDS: HYDROCHLOROTHIAZIDE 25 MG TABLET PO SCH (10:25)
[2020-09-14] MEDS: NEOMY SULF/BACITRAC ZN/POLY OINT 30GM TUBE TP SCH (10:26)
[2020-09-14] MEDS: ENOXAPARIN SODIUM 40 MG/0.4 ML SYRINGE SQ SCH (10:26)
[2020-09-14] MEDS: INSULIN GLARGINE 100 UNITS/ML 10 ML VIAL SQ SCH (10:27)
[2020-09-14 12:00] VITALS: BP 156/80
[2020-09-14] MEDS: FLUCONAZOLE 100 MG TAB PO SCH (12:35)
[2020-09-14 16:00] VITALS: BP 140/77
[2020-09-14 20:00] VITALS: BP 163/80
[2020-09-14] MEDS: ATORVASTATIN 10 MG TABLET PO SCH (20:31)
[2020-09-15] VITALS (7 sets, daily range): BP systolic 122–157; BP diastolic 63–73
[2020-09-15] MEDS: 0.9%NACL 1000ML 1,000 ML IV SCH ×2 (02:30→12:18)
[2020-09-15] MEDS: METRONIDAZOLE 500MG/100ML BAG 100 ML IVPB SCH (05:55)
[2020-09-15] MEDS: 0.9% NACL 250ML 250 ML IV SCH (05:56)
[2020-09-15] MEDS: VANCOMYCIN KIT 1 GM/250 ML IV.KIT IV SCH (05:56)
[2020-09-15 06:58] LABS: BASOPHILS % (AUTO) 0.5 % (0.0-5.0); EOSINOPHILS % (AUTO) 2.1 % (0.0-8.0); HEMATOCRIT 23.5 % (42-54); LYMPHOCYTES % (AUTO) 19.4 % (21.0-51.0); MEAN CORPUSCULAR HEMOGLOBIN 30.2 pg (27.0-33.0); MEAN CORPUSCULAR HGB CONC 33.6 g/dL (32.0-36.0); MEAN CORPUSCULAR VOLUME 89.7 fL (79-99); MONOCYTES % (AUTO) 9.6 % (3.0-13.0); NEUTROPHILS % (AUTO) 68.1 % (40.0-77.0); PLATELET COUNT (AUTO) 191 K/uL (130-400); RED BLOOD CELL COUNT(AUTO) 2.62 MIL/uL (4.50-6.20); RED CELL DISTRIBUTION WIDTH 12.5 % (11.0-15.5); WHITE BLOOD COUNT (AUTO) 5.8 K/uL (4.8-10.8)
[2020-09-15 07:07] LABS: CREATININE 0.9 mg/dL (0.5-1.5); POTASSIUM 3.4 mmol/L (3.5-5.1)
[2020-09-15] MEDS: INSULIN HUMULIN R 100 UNIT/ML 3ML SQ SCH ×7 (07:30→20:31)
[2020-09-15] MEDS: CEFEPIME HCL 2 GM VIAL IVP SCH (09:00)
[2020-09-15] MEDS: FAMOTIDINE 20MG VIAL IV SCH ×2 (11:01→20:35)
[2020-09-15] MEDS: LISINOPRIL 20 MG TABLET PO SCH (11:01)
[2020-09-15] MEDS: AMLODIPINE 5 MG TAB PO SCH (11:02)
[2020-09-15] MEDS: ENOXAPARIN SODIUM 40 MG/0.4 ML SYRINGE SQ SCH (11:02)
[2020-09-15] MEDS: HYDROCHLOROTHIAZIDE 25 MG TABLET PO SCH (11:02)
[2020-09-15] MEDS: ASPIRIN 81 MG EC TAB PO SCH (11:02)
[2020-09-15] MEDS: INSULIN GLARGINE 100 UNITS/ML 10 ML VIAL SQ SCH (11:04)
[2020-09-15] MEDS: NEOMY SULF/BACITRAC ZN/POLY OINT 30GM TUBE TP SCH (11:04)
[2020-09-15] MEDS: FLUCONAZOLE 100 MG TAB PO SCH (12:18)
[2020-09-15] MEDS: ATORVASTATIN 10 MG TABLET PO SCH (20:35)
[2020-09-16 03:57] VITALS: BP 143/67
[2020-09-16] MEDS: 0.9%NACL 1000ML 1,000 ML IV SCH (05:11)
[2020-09-16] MEDS: INSULIN HUMULIN R 100 UNIT/ML 3ML SQ SCH ×7 (06:05→22:22)
[2020-09-16 07:21] VITALS: BP 147/75
[2020-09-16] MEDS: ASPIRIN 81 MG EC TAB PO SCH (08:20)
[2020-09-16] MEDS: HYDROCHLOROTHIAZIDE 25 MG TABLET PO SCH (08:20)
[2020-09-16] MEDS: FAMOTIDINE 20MG VIAL IV SCH ×2 (08:20→21:27)
[2020-09-16] MEDS: AMLODIPINE 5 MG TAB PO SCH (08:21)
[2020-09-16] MEDS: LISINOPRIL 20 MG TABLET PO SCH (08:21)
[2020-09-16] MEDS: ENOXAPARIN SODIUM 40 MG/0.4 ML SYRINGE SQ SCH (08:24)
[2020-09-16] MEDS: INSULIN GLARGINE 100 UNITS/ML 10 ML VIAL SQ SCH (08:36)
[2020-09-16] MEDS: NEOMY SULF/BACITRAC ZN/POLY OINT 30GM TUBE TP SCH (10:44)
[2020-09-16 11:30] VITALS: BP 124/82
[2020-09-16] MEDS: FLUCONAZOLE 100 MG TAB PO SCH (13:12)
[2020-09-16 16:01] VITALS: BP 154/69
[2020-09-16 20:10] VITALS: BP 152/71
[2020-09-16] MEDS: ATORVASTATIN 10 MG TABLET PO SCH (21:28)
[2020-09-16 23:41] VITALS: BP 143/73
[2020-09-17 03:48] VITALS: BP 142/74
[2020-09-17] MEDS: INSULIN HUMULIN R 100 UNIT/ML 3ML SQ SCH ×7 (05:35→21:00)
[2020-09-17 06:22] LABS: BASOPHILS % (AUTO) 0.6 % (0.0-5.0); EOSINOPHILS % (AUTO) 3.3 % (0.0-8.0); HEMATOCRIT 23.8 % (42-54); MEAN CORPUSCULAR HEMOGLOBIN 30.8 pg (27.0-33.0); MEAN CORPUSCULAR VOLUME 90.5 fL (79-99); MONOCYTES % (AUTO) 9.4 % (3.0-13.0); NEUTROPHILS % (AUTO) 57.5 % (40.0-77.0); PLATELET COUNT (AUTO) 233 K/uL (130-400); RED BLOOD CELL COUNT(AUTO) 2.63 MIL/uL (4.50-6.20); WHITE BLOOD COUNT (AUTO) 4.9 K/uL (4.8-10.8)
[2020-09-17 06:31] LABS: MAGNESIUM 1.6 mg/dL (1.80-2.40); POTASSIUM 4.1 mmol/L (3.5-5.1)
[2020-09-17 08:05] VITALS: BP 129/80
[2020-09-17] MEDS ORDERED: MAGNESIUM OXIDE 400 MG TABLET PO SCH (09:00)
[2020-09-17] MEDS: FAMOTIDINE 20MG VIAL IV SCH ×2 (09:45→21:07)
[2020-09-17] MEDS: AMLODIPINE 5 MG TAB PO SCH (09:45)
[2020-09-17] MEDS: LISINOPRIL 20 MG TABLET PO SCH (09:45)
[2020-09-17] MEDS: HYDROCHLOROTHIAZIDE 25 MG TABLET PO SCH (09:45)
[2020-09-17] MEDS: ASPIRIN 81 MG EC TAB PO SCH (09:45)
[2020-09-17] MEDS: ENOXAPARIN SODIUM 40 MG/0.4 ML SYRINGE SQ SCH (09:46)
[2020-09-17] MEDS: NEOMY SULF/BACITRAC ZN/POLY OINT 30GM TUBE TP SCH (09:46)
[2020-09-17] MEDS: INSULIN GLARGINE 100 UNITS/ML 10 ML VIAL SQ SCH (09:52)
[2020-09-17] MEDS: FLUCONAZOLE 100 MG TAB PO SCH (12:13)
[2020-09-17 12:34] VITALS: BP 144/75
[2020-09-17 16:39] VITALS: BP 141/73
[2020-09-17 19:42] VITALS: BP 146/72
[2020-09-17] MEDS: ATORVASTATIN 10 MG TABLET PO SCH (21:07)
[2020-09-17 23:41] VITALS: BP 158/75
[2020-09-18 03:30] VITALS: BP 157/73
[2020-09-18] MEDS: INSULIN HUMULIN R 100 UNIT/ML 3ML SQ SCH ×4 (05:56→12:28)
[2020-09-18 06:21] LABS: MAGNESIUM 1.7 mg/dL (1.80-2.40)
[2020-09-18 08:04] VITALS: BP 142/70
[2020-09-18] MEDS ORDERED: MAGNESIUM OXIDE 400 MG TABLET PO SCH (09:30)
[2020-09-18] MEDS: HYDROCHLOROTHIAZIDE 25 MG TABLET PO SCH (09:36)
[2020-09-18] MEDS: ASPIRIN 81 MG EC TAB PO SCH (09:36)
[2020-09-18] MEDS: AMLODIPINE 5 MG TAB PO SCH (09:37)
[2020-09-18] MEDS: FAMOTIDINE 20MG VIAL IV SCH (09:37)
[2020-09-18] MEDS: LISINOPRIL 20 MG TABLET PO SCH (09:37)
[2020-09-18] MEDS: ENOXAPARIN SODIUM 40 MG/0.4 ML SYRINGE SQ SCH (09:38)
[2020-09-18] MEDS: NEOMY SULF/BACITRAC ZN/POLY OINT 30GM TUBE TP SCH (09:38)
[2020-09-18] MEDS: INSULIN GLARGINE 100 UNITS/ML 10 ML VIAL SQ SCH (09:39)
[2020-09-18 11:47] VITALS: BP 142/75
[2020-09-18] MEDS: FLUCONAZOLE 100 MG TAB PO SCH (12:28)
[2020-09-18] MEDS ORDERED: FLUC100T8 PO (14:21)
[2020-09-18] MEDS ORDERED: MAGN400T53 PO (14:21)
[2020-09-18 15:47] VITALS: BP 144/73
== END 2020-09-18 17:30 | disposition home or self-care (01) | DRG 240 ==
LOC: EDH 14:21 → EDHIP 14:26 → UNDOADMIN 16:17 → 3BH 09-10 15:30
PROVIDERS: ADMIT Internal Medicine; ATTEND Internal Medicine
PROC: B41DYZZ Fluoroscopy of Aorta and Bilateral Lower Extremity Arteries using Other Contrast (ICD-10-PCS; 2020-09-11)
PROC: 0Y6N0ZF Detachment at Left Foot, Partial 5th Ray, Open Approach (ICD-10-PCS; 2020-09-12)
PROC: 0Y6N0ZD Detachment at Left Foot, Partial 4th Ray, Open Approach (ICD-10-PCS; principal; 2020-09-12 18:13)
DX: E11.52 Type 2 diabetes mellitus with diabetic peripheral angiopathy with gangrene (principal); L03.116 Cellulitis of left lower limb; D84.9 Immunodeficiency, unspecified; M86.672 Other chronic osteomyelitis, left ankle and foot; I96 Gangrene, not elsewhere classified; E11.69 Type 2 diabetes mellitus with other specified complication; L97.529 Non-pressure chronic ulcer of other part of left foot with unspecified severity; E11.622 Type 2 diabetes mellitus with other skin ulcer; E11.621 Type 2 diabetes mellitus with foot ulcer; I10 Essential (primary) hypertension; E78.5 Hyperlipidemia, unspecified; E66.9 Obesity, unspecified; R79.89 Other specified abnormal findings of blood chemistry; Z91.19 Patient's noncompliance with other medical treatment and regimen; Z79.4 Long term (current) use of insulin; Z82.3 Family history of stroke; Z83.3 Family history of diabetes mellitus; Z82.49 Family history of ischemic heart disease and other diseases of the circulatory system; Z68.24 Body mass index [BMI] 24.0-24.9, adult; Z79.899 Other long term (current) drug therapy
CPT/HCPCS: 36246; 36415; 73718; 75716; 80048; 80053; 80202; 82948; 83605; 83735; 84145; 85025; 85027; 85610; 85651; 85730; 86140; 87070; 87076; 87205; 93925; 97039; 99156; 99157; C1894; G0378; J0692; J1170; J1644; J1650; J1815; J2250; J2405; J2543; J3010; J3370; J3490; J7030; J7050; Q9967

== ENCOUNTER → 2023-08-29 | Outpatient (CLI) | payer OTHER ==
[~2023-08-29] MED LIST changes: -AMOX500C2 PO; +FLUC100T12 PO; -INSLAN SQ; -LEVO500T89 PO; -LISI1TAB29 PO; +LISI1TAB53 PO; +MAGN400T53 PO; +NPH,100V11 SQ; -SYRI-1628 MC
== END | disposition home or self-care (01) ==
LOC: RAH 15:25
PROVIDERS: ATTEND Family Medicine
DX: H34.231 Retinal artery branch occlusion, right eye (principal)
CPT/HCPCS: 93880